=== PATIENT | male | born 1975 | race Two or more races ===

== ENCOUNTER 2022-05-14 14:26 | Inpatient (IN) | payer BC ==
[~2022-05-14] VITALS: Ht 175.3 cm; Wt 92.5 kg
[2022-05-14 14:34] VITALS: BP_SYST 125
--- NOTE | 2022-05-14 14:45 | NUR ---
Patient to ER bed 6 to gown for evaluation. Side rails up. Report given to YUDITH BENTON.
--- NOTE | 2022-05-14 14:45 | NUR ---
Patient c/c Abd pain since 0830am, went to urgent care and was told to come to ED for further exam. Patient is AOx4 in no acute distress, 3/10 pain, ambulates +ADLs, Placed to Bed 6 for exam.
--- NOTE | 2022-05-14 15:08 | NUR ---
Labs drawn and sent to lab
--- NOTE | 2022-05-14 15:09 | NUR ---
Patient taken for imaging
--- NOTE | 2022-05-14 15:13 | NUR ---
Patient returned from imaging
[2022-05-14] MEDS ORDERED: MORPHINE 4 MG INJ. 4 MG/ML VIAL IVP ONE ×2 (15:15→18:00)
[2022-05-14] MEDS ORDERED: NACL 0.9% 1,000 ML IV ONE (15:15)
[2022-05-14] MEDS ORDERED: ONDANSETRON HCL 4 MG/2 ML VIAL IVP ONE ×2 (15:15→18:00)
--- NOTE | 2022-05-14 15:27 | NUR ---
20G PIV to Right AC
--- NOTE | 2022-05-14 15:27 | NUR ---
Urine collected and sent to lab
--- NOTE | 2022-05-14 15:39 | NUR ---
20G PIV placed to Left FA
[2022-05-14 15:42] LABS: BASOPHILS # (AUTO) 0.1 K/uL (0.0-0.2); BASOPHILS % (AUTO) 0.5 % (0.0-2.0); EOSINOPHILS # (AUTO) 0.1 K/uL (0.0-0.4); EOSINOPHILS % (AUTO) 0.6 % (0.0-4.0); HEMATOCRIT 25.9 % (36-54); LYMPHOCYTES # (AUTO) 1.2 K/uL (1.0-5.5); LYMPHOCYTES % (AUTO) 6.7 % (20.5-51.5); MEAN CORPUSCULAR HEMOGLOBIN 16 pg (27-31); MEAN CORPUSCULAR HGB CONC 29 % (32-36); MEAN CORPUSCULAR VOLUME 54 fL (79.0-98.0); MONOCYTES # (AUTO) 1.2 K/uL (0.0-1.0); MONOCYTES % (AUTO) 6.7 % (1.7-9.3); NEUTROPHILS # (AUTO) 14.8 K/uL (1.8-7.7); NEUTROPHILS % (AUTO) 85.5 % (40.0-70.0); PLATELET COUNT (AUTO) 552 K/uL (130-430); RED BLOOD CELL COUNT(AUTO) 4.76 MIL/uL (4.2-6.2); WHITE BLOOD COUNT (AUTO) 17.3 K/uL (4.8-10.8)
[2022-05-14 15:44] LABS: CALCIUM 9.1 mg/dL (8.4-11.0); CREATININE 0.92 mg/dL (0.55-1.30); POTASSIUM 4.1 mmol/L (3.5-5.1)
[2022-05-14] MEDS ORDERED: PIPERACILLIN/TAZO 3.375 GM in NS 50 ML IV ONE (15:45)
[2022-05-14 15:50] LABS: ALBUMIN 3.9 g/dL (3.4-4.8); TOTAL BILIRUBIN 0.5 mg/dL (0.0-1.0)
[2022-05-14 15:54] LABS: HEMOGLOBIN 7.4 g/dL (14.0-18.0)
[2022-05-14] MEDS ORDERED: PIPERACILLIN/TAZOBACTAM 3.375 GM/VIAL (ZOSYN) IV ONE (15:58)
[2022-05-14 16:06] LABS: BILIRUBIN,URINE NEGATIVE (NEGATIVE); BLOOD, URINE NEGATIVE (NEGATIVE); CLARITY/URINE CLEAR (CLEAR); COLOR,URINE YELLOW (YELLOW); GLUCOSE,URINE NEGATIVE (NEGATIVE); KETONES,URINE NEGATIVE (NEGATIVE); LEUKOCYTE ESTERASE ,URINE NEGATIVE (NEGATIVE); NITRITE, URINE NEGATIVE (NEGATIVE); PH,URINE 5.5 (5.0-8.0); PROTEIN URINE NEGATIVE (NEGATIVE); UROBILINOGEN,URINE 0.2 (0.2-1.0)
--- NOTE | 2022-05-14 17:43 | NUR ---
Patient calm and cooperative, bed low and locked. All safety precautions in place.
--- NOTE | 2022-05-14 18:52 | NUR ---
Dr. Hall called unit, ED MD spoke with Dr. Hall over phone and discussed plan of care.
--- NOTE | 2022-05-14 18:54 | NUR ---
Closing Note: Report given to incoming NOC RN, all cares endorsed.
[2022-05-14] MEDS ORDERED: MORPHINE 2 MG/ML INJ. SYRINGE IVP PRN ×2 (19:15→20:30)
[2022-05-14] MEDS ORDERED: D5/0.45 NS 1,000 ML IV ONE (19:15)
--- NOTE | 2022-05-14 19:20 | NUR ---
Admit bed requested Patient will be admitted to care of Dr. Parker Admitted to TELE unit. Diagnosis Appendicitis Inpatient (Yes or No) Yes Observation (Yes or No) No Orientation concerns or request close to nursing station (Yes or No) No Covid Status Neg On vent or bipap No Isolation requirements None Needs a sitter NO From Home (Yes or if No enter name of facility) HOME Requires Dialysis (Yes or No) NO Med Rec Completed (Yes of No) Yes
--- NOTE | 2022-05-14 19:30 | NUR ---
pt is aa&ox4. afebrile. nad. c/o tolerable 08/31 rlq pain, effective pain meds administered by dayshift nurse. ambulatory w/ steady gait. safe & hazard free environment. vss. w/ 2 iv sl on lfa & rac intact w/ no s/s of phlebitis nor infiltration. will con't to monitor.
[2022-05-14] MEDS ORDERED: DOCUSATE SODIUM 100 MG CAPSULE PO PRN (20:30)
[2022-05-14] MEDS ORDERED: ONDANSETRON HCL 4 MG/2 ML VIAL IVP PRN (20:30)
[2022-05-14] MEDS ORDERED: LORazepam 2 MG/ML VIAL IVP PRN (20:30)
[2022-05-14] MEDS ORDERED: POTASSIUM CHLORIDE 20 MEQ TAB.PRT.SR PO PRN (20:30)
[2022-05-14] MEDS ORDERED: NALOXONE HCL 0.4 MG/ML AMP (NARCAN) IVP PRN ×2 (20:30)
[2022-05-14] MEDS ORDERED: MUPIROCIN 2% TOPICAL OINTMENT 22 GM NS PRN (20:30)
[2022-05-14] MEDS ORDERED: MAGNESIUM SULFATE 50 ML IV PRN (20:30)
[2022-05-14] MEDS ORDERED: ACETAMINOPHEN 325 MG TABLET PO PRN ×2 (20:30→20:45)
--- NOTE | 2022-05-14 22:31 | NUR ---
Patient will be admitted to care of DR. LAWSON. Admitted to TELEMETRY unit. Will go to room 128B. Belongings list completed. Complete and up to date summary report printed. SBAR report given TO SERENITY BROOKE at bedside with opportunity for questions.
[2022-05-14 22:56] VITALS: BP_SYST 129
[2022-05-15] MEDS: MORPHINE 2 MG/ML INJ. SYRINGE IVP PRN ×5 (00:01→23:26)
[2022-05-15] MEDS: PIPERACILLIN/TAZO 3.375/DEX-IS 50 ML IV SCH ×5 (00:04→23:23)
[2022-05-15 06:36] LABS: CALCIUM 8.4 mg/dL (8.4-11.0); POTASSIUM 3.6 mmol/L (3.5-5.1)
[2022-05-15 07:00] LABS: BASOPHILS # (AUTO) 0.1 K/uL (0.0-0.2); BASOPHILS % (AUTO) 0.6 % (0.0-2.0); EOSINOPHILS # (AUTO) 0.1 K/uL (0.0-0.4); EOSINOPHILS % (AUTO) 0.7 % (0.0-4.0); HEMATOCRIT 23.3 % (36-54); LYMPHOCYTES # (AUTO) 1.3 K/uL (1.0-5.5); LYMPHOCYTES % (AUTO) 11.6 % (20.5-51.5); MEAN CORPUSCULAR HEMOGLOBIN 16 pg (27-31); MEAN CORPUSCULAR HGB CONC 28 % (32-36); MEAN CORPUSCULAR VOLUME 55 fL (79.0-98.0); MONOCYTES # (AUTO) 1.1 K/uL (0.0-1.0); MONOCYTES % (AUTO) 9.5 % (1.7-9.3); NEUTROPHILS # (AUTO) 8.7 K/uL (1.8-7.7); NEUTROPHILS % (AUTO) 77.6 % (40.0-70.0); PLATELET COUNT (AUTO) 487 K/uL (130-430); RED BLOOD CELL COUNT(AUTO) 4.25 MIL/uL (4.2-6.2); RED CELL DISTRIBUTION WIDTH 20.6 % (9.0-15.0); WHITE BLOOD COUNT (AUTO) 11.2 K/uL (4.8-10.8)
[2022-05-15 07:07] LABS: HEMOGLOBIN 6.6 g/dL (14.0-18.0)
--- NOTE | 2022-05-15 07:15 | NUR ---
Opening Note: Report rcvd from outgoing NOC RN, all cares assumed
--- NOTE | 2022-05-15 07:30 | NUR ---
Critical Lab MD Parker made aware in person of H&H, STAT order rcvd and placed
--- NOTE | 2022-05-15 07:40 | NUR ---
Blood consent rcvd from patient, document brought to lab. Pending PR[facility] Unit
[2022-05-15 08:00] VITALS: BP_SYST 122
--- NOTE | 2022-05-15 08:06 | NUR ---
Dr. Parker at bedside discussing plan of care with patient
--- NOTE | 2022-05-15 08:06 | NUR ---
8/10 Pain reported, PRN given per order, education provided
[2022-05-15 09:13] LABS: TOTAL IRON BIND. CAPACITY 376 ug/dL (250-450)
[2022-05-15 09:24] LABS: INR 1.2 (0.80-1.20); PROTHROMBIN TIME 12.1 SECS (9.5-12.5)
--- NOTE | 2022-05-15 10:09 | NUR ---
CONSULTATION: REASON FOR CONSULT: ANEMIA, COLITIS CONSULTING PHYSICIAN: JHON POPE ORDERED BY: NANDINI SPOKE WITH HUYEN [phone]
--- NOTE | 2022-05-15 10:40 | NUR ---
Dr. Miller at bedside speaking to patient
--- NOTE | 2022-05-15 10:45 | NUR ---
Pre-Transfusion vitals obtained for blood transfusion, patients vitals stable WNL
--- NOTE | 2022-05-15 11:00 | NUR ---
1 Unit PRBC started per order for low H&H. Unit verified by 2nd RN, education provided to patient and patient has verbalized understanding. Will remain with patient for 15 min to monitor for interactions.
--- NOTE | 2022-05-15 11:15 | NUR ---
15 Post Transfusion vitals obtained, WNL, patient stable and in no acute distress and or discomfort. Patient denies pain or s/sx of reaction. Rate increased per order.
[2022-05-15 12:00] VITALS: BP_SYST 110
--- NOTE | 2022-05-15 13:04 | NUR ---
7/10 Pain reported, PRN given per order, education provided
--- NOTE | 2022-05-15 13:48 | NUR ---
Dr. Hall making rounds, at bedside speaking with patient and plan of care.
[2022-05-15 16:00] VITALS: BP_SYST 108
--- NOTE | 2022-05-15 16:32 | NUR ---
Renal US tech at bedside
--- NOTE | 2022-05-15 18:18 | NUR ---
8/10 Pain reported, PRN given per order, education provided
--- NOTE | 2022-05-15 18:50 | NUR ---
Closing Note: Report given to incoming NOC RN, all cares endorsed.
[2022-05-15 20:00] VITALS: BP_SYST 112
[2022-05-15] MEDS: D5/0.45 NS 1,000 ML IV SCH (21:24)
--- NOTE | 2022-05-15 21:30 | NUR ---
Endorsed patient to Kelly BENTON /Registry
[2022-05-15] MEDS: ZOLPIDEM TARTRATE 5 MG TABLET PO PRN (23:27)
--- NOTE | 2022-05-15 23:33 | NUR ---
PATIENT COMPLAINED OF ABD PAIN 02/28 , MEDICATED ORDERED , WILL RE ASSESS
[2022-05-15 23:47] VITALS: BP_SYST 114
[2022-05-16] VITALS: BP_SYST 114
[2022-05-16] MEDS: PIPERACILLIN/TAZO 3.375/DEX-IS 50 ML IV SCH ×3 (06:09→17:56)
[2022-05-16] MEDS: D5/0.45 NS 1,000 ML IV SCH ×2 (06:09→17:58)
[2022-05-16 06:36] LABS: BASOPHILS # (AUTO) 0.1 K/uL (0.0-0.2); EOSINOPHILS # (AUTO) 0.1 K/uL (0.0-0.4); EOSINOPHILS % (AUTO) 0.6 % (0.0-4.0); HEMATOCRIT 24.6 % (36-54); HEMOGLOBIN 7.3 g/dL (14.0-18.0); LYMPHOCYTES # (AUTO) 1.3 K/uL (1.0-5.5); LYMPHOCYTES % (AUTO) 12.7 % (20.5-51.5); MEAN CORPUSCULAR HEMOGLOBIN 17 pg (27-31); MEAN CORPUSCULAR HGB CONC 30 % (32-36); MEAN CORPUSCULAR VOLUME 57 fL (79.0-98.0); MONOCYTES % (AUTO) 9.2 % (1.7-9.3); NEUTROPHILS # (AUTO) 7.9 K/uL (1.8-7.7); NEUTROPHILS % (AUTO) 76.5 % (40.0-70.0); PLATELET COUNT (AUTO) 445 K/uL (130-430); RED BLOOD CELL COUNT(AUTO) 4.33 MIL/uL (4.2-6.2); RED CELL DISTRIBUTION WIDTH 22.8 % (9.0-15.0); WHITE BLOOD COUNT (AUTO) 10.4 K/uL (4.8-10.8)
--- NOTE | 2022-05-16 07:12 | NUR ---
receive the patinet from the rig mechanic rn in a stable condition with admitting diagnosis of appendicitis .aox4 at rm 128b no sign and symptoms of respiratory distress . no complain of pain at this time . will continue to monitor .
[2022-05-16 07:55] LABS: CALCIUM 8.6 mg/dL (8.4-11.0); CREATININE 1.08 mg/dL (0.55-1.30); POTASSIUM 3.5 mmol/L (3.5-5.1)
[2022-05-16 08:06] LABS: FOLATE (FOLIC ACID) 13.5 ng/mL (>3.0)
[2022-05-16] MEDS ORDERED: FERROUS SULFATE 325 MG TABLET.DR PO ONE (10:15)
[2022-05-16] MEDS: MORPHINE 2 MG/ML INJ. SYRINGE IVP PRN ×2 (11:13→18:06)
[2022-05-16] MEDS ORDERED: DIATR MEGLU/DIATRIZ SOD 30 ML SOLUTION PO ONE (14:24)
--- NOTE | 2022-05-16 15:14 | NUR ---
paltient was npo for computed tomography of abdomen with contrast . consent was secured .
--- NOTE | 2022-05-16 16:20 | NUR ---
patient tolerated the computed tomography . patient was order clear liquid diet
[2022-05-16] MEDS: FERROUS SULFATE 325 MG TABLET.DR PO SCH (17:56)
--- NOTE | 2022-05-16 18:18 | NUR ---
stool sample was submitted to the laboratory for occult blood
--- NOTE | 2022-05-16 19:11 | NUR ---
will endorse to shift nurse manager rn for continuity of care
[2022-05-16] MEDS: ZOLPIDEM TARTRATE 5 MG TABLET PO PRN ×2 (22:20→22:21)
[2022-05-17] MEDS: PIPERACILLIN/TAZO 3.375/DEX-IS 50 ML IV SCH ×4 (00:28→17:23)
[2022-05-17] MEDS: D5/0.45 NS 1,000 ML IV SCH ×2 (00:29→11:57)
[2022-05-17 02:40] LABS: BARBITURATE, URINE NEGATIVE (NEG <=200); BENZODIAZEPINE, URINE NEGATIVE (NEG <=150); CANNABINOID, URINE NEGATIVE (NEG <=50); COCAINE, URINE NEGATIVE (NEG <=150); METHAMPHETAMINES SCREEN,URINE NEGATIVE (NEG <=500); OPIATE, URINE POSITIVE (NEG <=100); PHENCYCLIDINE SCREEN,URINE NEGATIVE (NEG <=25); UR TRICYCLIC ANTIDEPRESSANTS NEGATIVE (NEG <=300); URINE AMPHETAMINE NEGATIVE (NEG <=500); URINE METHADONE NEGATIVE (NEG <=200); URINE OXYCODONE SCREEN NEGATIVE (NEG <=100); URINE PROPOXYPHENE SCREEN NEGATIVE (NEG <=300)
[2022-05-17 06:35] LABS: CALCIUM 8.9 mg/dL (8.4-11.0); CREATININE 0.88 mg/dL (0.55-1.30); POTASSIUM 3.4 mmol/L (3.5-5.1)
--- NOTE | 2022-05-17 06:48 | NUR ---
PATIENT ACCIDENTALLY PULLED OUT HIS PIV TO LEFT FOREARM, AT 0615,PIV #18RE-STARTED TO LEFT HAND,PATIENT TOLERATED PROCEDURE WELL. PIV TO RIGHT FOREARM INFILTRATED,D/C AND DRESSING APPLIED
[2022-05-17 06:54] LABS: BASOPHILS # (AUTO) 0.1 K/uL (0.0-0.2); BASOPHILS % (AUTO) 0.9 % (0.0-2.0); EOSINOPHILS # (AUTO) 0.2 K/uL (0.0-0.4); HEMATOCRIT 24.5 % (36-54); HEMOGLOBIN 7.3 g/dL (14.0-18.0); MONOCYTES # (AUTO) 0.8 K/uL (0.0-1.0); NEUTROPHILS # (AUTO) 6.7 K/uL (1.8-7.7); PLATELET COUNT (AUTO) 495 K/uL (130-430)
[2022-05-17 07:08] LABS: EOSINOPHILS % (AUTO) 1.9 % (0.0-4.0); LYMPHOCYTES # (AUTO) 1.6 K/uL (1.0-5.5); LYMPHOCYTES % (AUTO) 16.7 % (20.5-51.5); MEAN CORPUSCULAR HEMOGLOBIN 17 pg (27-31); MEAN CORPUSCULAR HGB CONC 30 % (32-36); MEAN CORPUSCULAR VOLUME 57 fL (79.0-98.0); MONOCYTES % (AUTO) 8.3 % (1.7-9.3); RED BLOOD CELL COUNT(AUTO) 4.32 MIL/uL (4.2-6.2); RED CELL DISTRIBUTION WIDTH 22.8 % (9.0-15.0); WHITE BLOOD COUNT (AUTO) 9.3 K/uL (4.8-10.8)
--- NOTE | 2022-05-17 07:08 | NUR ---
receive the patient form the night rn in a stable condition with admitting diagnosis of appendicitis aox4 . no complain of pain at this time . no signs and symptoms of respiratory distress . will continue to monitor
[2022-05-17 08:15] LABS: NEUTROPHILS % (AUTO) 72.2 % (40.0-70.0)
[2022-05-17] MEDS: FERROUS SULFATE 325 MG TABLET.DR PO SCH ×2 (09:22→17:22)
[2022-05-17] MEDS: MORPHINE 2 MG/ML INJ. SYRINGE IVP PRN (10:15)
[2022-05-17 11:12] VITALS: BP_SYST 111
--- NOTE | 2022-05-17 11:45 | NUR ---
order for colonoscopy for tomorrow 05/18/2022 was receive. consent was acquired form the patient . patient teaching re preparation for the procedure was done with patient . patient fully understand the teaching
--- NOTE | 2022-05-17 14:10 | NUR ---
potassium level this morning was 3.4 . standing order of potassium chloride 40meq was given by the rn
--- NOTE | 2022-05-17 14:32 | NUR ---
Loom Checker for [facility] is Vilma . She is contact for any DC needs.
[2022-05-17 16:11] VITALS: BP_SYST 109
[2022-05-17] MEDS ORDERED: BISACODYL 5 MG TABLET.DR (DULCOLAX) PO ONE (17:00)
--- NOTE | 2022-05-17 17:45 | NUR ---
gave the golytely . dulcolax for the patient to start on his cleansing for colonoscopy tomorrow
[2022-05-17] MEDS ORDERED: GOLYTELY / COLYTE SOLUTION 4 LITERS PO ONE (18:00)
--- NOTE | 2022-05-17 18:13 | NUR ---
will endorse to auto leasing manager rn for continuity of care
--- NOTE | 2022-05-17 19:00 | NUR ---
I received pt alert and oriented x 4. he denies pain .pt has IVF ruining @75 ml/h. vitals done are WNL.pt is drinking the Golytely for tomorrows procedures
[2022-05-17 23:32] VITALS: BP_SYST 117
--- NOTE | 2022-05-18 | NUR ---
A Peripheral line G20 inserted to left hand.IVF in progress.pts ambulating to bathroom.bedside urinal provided
[2022-05-18] MEDS: D5/0.45 NS 1,000 ML IV SCH ×2 (00:47→12:19)
[2022-05-18] MEDS: PIPERACILLIN/TAZO 3.375/DEX-IS 50 ML IV SCH ×3 (00:47→12:16)
[2022-05-18 07:06] LABS: CALCIUM 9.2 mg/dL (8.4-11.0); CREATININE 0.84 mg/dL (0.55-1.30); POTASSIUM 3.9 mmol/L (3.5-5.1)
[2022-05-18 07:11] LABS: BASOPHILS % (AUTO) 0.7 % (0.0-2.0); EOSINOPHILS # (AUTO) 0.2 K/uL (0.0-0.4); EOSINOPHILS % (AUTO) 2.4 % (0.0-4.0); HEMATOCRIT 25.1 % (36-54); HEMOGLOBIN 7.5 g/dL (14.0-18.0); LYMPHOCYTES # (AUTO) 1.4 K/uL (1.0-5.5); MEAN CORPUSCULAR HEMOGLOBIN 17 pg (27-31); MEAN CORPUSCULAR HGB CONC 30 % (32-36); MEAN CORPUSCULAR VOLUME 57 fL (79.0-98.0); MONOCYTES # (AUTO) 0.6 K/uL (0.0-1.0); MONOCYTES % (AUTO) 7.9 % (1.7-9.3); NEUTROPHILS # (AUTO) 5.3 K/uL (1.8-7.7); PLATELET COUNT (AUTO) 524 K/uL (130-430); RED BLOOD CELL COUNT(AUTO) 4.43 MIL/uL (4.2-6.2); RED CELL DISTRIBUTION WIDTH 22.7 % (9.0-15.0); WHITE BLOOD COUNT (AUTO) 7.5 K/uL (4.8-10.8)
--- NOTE | 2022-05-18 07:30 | NUR ---
receive the patient from the urogynecology physician rn in a stable condition with admitting diagnosis of appendicitis . aox4 NPO no complain of pain at this time . no sign and symptoms of respiratory distress , will continue to monitor
[2022-05-18] MEDS ORDERED: SIMETHICONE 40 MG/0.6 ML ML ONE (07:49)
--- NOTE | 2022-05-18 08:30 | NUR ---
pick for colonoscopy .
[2022-05-18] MEDS: MIDAZOLAM HCL 5 MG/5 ML VIAL ONE ×4 (08:37→08:46)
[2022-05-18] MEDS: MEPERIDINE 100 MG INJ. 100 MG/ML VIAL ONE ×2 (08:37→08:41)
[2022-05-18] MEDS ORDERED: DIPHENHYDRAMINE INJ 50 MG/ML VIAL ONE (08:49)
--- NOTE | 2022-05-18 11:00 | NUR ---
patient was back from colonoscopy
[2022-05-18] MEDS: FERROUS SULFATE 325 MG TABLET.DR PO SCH (12:17)
--- NOTE | 2022-05-18 12:30 | NUR ---
results were back from the colonoscopy procedure . md golden confirmed that the patient has cancer on the sigmoid colon . md taveras will do the surgery
--- NOTE | 2022-05-18 15:00 | NUR ---
Dietitian Recommendations * Consider TPN/PPN support if PO diet is not indicated 1-2 days after GI Sx * Nutrition Consult after Sx LP, MS, RD Please refer to Nutrition Assessment for details. Addendum: 05/18/22 at [address] Amended: Links added.
--- NOTE | 2022-05-18 16:45 | NUR ---
md taveras will do the surgery on saturday2021 . ok for the patient to discharge . be back by saturday .
--- NOTE | 2022-05-18 17:30 | NUR ---
discharge to home in a stable condition to the lobby with the parents on a private car
--- NOTE | 2022-05-18 17:49 | NUR ---
ok to be discharge .come back by saturday from md abdi
[2022-05-18 17:55] VITALS: BP_SYST 108
[2022-05-20] MEDS ORDERED: FERR324T22 PO (19:46)
== END 2022-05-18 17:50 | disposition home or self-care (01) | DRG 872 ==
LOC: SED 14:26 → STU 19:11 → SMU 05-18 11:43
PROVIDERS: ADMIT General Practice; ATTEND General Practice
PROC: 30233N1 Transfusion of Nonautologous Red Blood Cells into Peripheral Vein, Percutaneous Approach (ICD-10-PCS; 2022-05-15)
PROC: 0DBK8ZX Excision of Ascending Colon, Via Natural or Artificial Opening Endoscopic, Diagnostic (ICD-10-PCS; principal; 2022-05-18 08:30)
PROC: 0DBE8ZZ Excision of Large Intestine, Via Natural or Artificial Opening Endoscopic (ICD-10-PCS; 2022-05-18 08:30)
DX: A41.9 Sepsis, unspecified organism (principal); K35.80 Unspecified acute appendicitis; D63.8 Anemia in other chronic diseases classified elsewhere; K52.9 Noninfective gastroenteritis and colitis, unspecified; D50.9 Iron deficiency anemia, unspecified; K63.5 Polyp of colon; K64.8 Other hemorrhoids; Z79.899 Other long term (current) drug therapy
CPT/HCPCS: 36415; 71045; 76376; 80048; 80053; 80307; 81003; 82272; 82607; 82728; 82746; 83036; 83540; 83550; 83605; 83690; 83735; 85025; 85610-TC; 86886; 86900; 86901; 86920; 87040; 88305; 93005; 96361; 96365; 96375; 96376; 99285; G0378; J1200; J2175; J2250; J2270; J2405; J2543; J7030; J7040; P9021; Q9964; Q9967